=== PATIENT | female | born 1995 | race Caucasian/White ===

== ENCOUNTER 2024-09-17 14:46 | Emergency (ER) | payer SELFPAY ==
[~2024-09-17] VITALS: Ht 160 cm; Wt 59.0 kg
[2024-09-17 15:47] LABS: BASOPHILS % 0.7 % (0.0-2.0); HEMATOCRIT. 39.1 % (36.0-48.0); HEMOGLOBIN. 12.8 g/dL (12.0-16.0); LYMPHOCYTES % 18.6 % (20.0-50.0); MEAN CORPUSCULAR HEMOGLOBIN 31.5 pg (28.0-32.0); MEAN CORPUSCULAR HGB CONC 32.8 g/dL (31.0-37.0); MEAN CORPUSCULAR VOLUME 96.1 fL (81.0-99.0); MEAN PLATELET VOLUME 7.6 fl (7.4-10.4); MONOCYTES % 6.8 % (2.0-8.0); NEUTROPHILS % 73.9 % (40.0-76.0); PLATELET 328 x1000/uL (130-400); RED BLOOD CELL COUNT 4.07 mill/uL (4.2-5.4); RED CELL DISTRIBUTION WIDTH 12.9 % (11.6-14.6); WHITE BLOOD COUNT 14.4 x1000/uL (4.5-11.0)
[2024-09-17 15:54] LABS: CLARITY URINE CLOUDY (CLEAR); COLOR URINE YELLOW (YELLOW); GLUCOSE URINE NEGATIVE (NEGATIVE); KETONES URINE 3+ (NEGATIVE); LEUKOCYTE ESTERASE URINE NEGATIVE (NEGATIVE); NITRITE URINE NEGATIVE (NEGATIVE); OCCULT BLOOD URINE 2+ (NEGATIVE); PROTEIN URINE 1+ (NEGATIVE); SPECIFIC GRAVITY URINE 1.021 (1.005-1.030); UROBILINOGEN URINE 0.2 E.U./dL (0.2-1.0)
[2024-09-17 15:56] LABS: CHLORIDE 104 mEq/L (98-107); POTASSIUM 3.1 mEq/L (3.5-5.1); SODIUM 141 mEq/L (136-145)
[2024-09-17 15:57] LABS: CARBON DIOXIDE 25 mEq/L (21-32)
[2024-09-17 15:58] LABS: CALCIUM 9.7 mg/dL (8.7-10.4)
[2024-09-17 16:02] LABS: CREATININE 0.8 mg/dL (0.6-1.0); GLUCOSE 106 mg/dL (70-105); UREA NITROGEN BLOOD 14 mg/dL (9-23)
[2024-09-17 16:04] LABS: ACETAMINOPHEN < 2 ug/mL (10-30)
[2024-09-17 16:13] LABS: *AMPHETAMINES SCREEN URINE NEGATIVE (NEGATIVE); *BARBITURATES SCREEN URINE NEGATIVE (NEGATIVE); *BENZODIAZEPINES SCREEN URINE NEGATIVE (NEGATIVE); *COCAINE SCREEN URINE NEGATIVE (NEGATIVE); METHADONE URINE SCREEN NEGATIVE (NEGATIVE); OPIATES URINE SCREEN NEGATIVE (NEGATIVE)
[2024-09-17 16:14] LABS: CANNABINOID URINE SCREEN PRESUMPTIVE POSITIVE (NEGATIVE); ECSTASY MDMA SCREEN URINE NEGATIVE (NEGATIVE); PHENCYCLIDINE URINE SCREEN NEGATIVE (NEGATIVE)
[2024-09-17 16:38] LABS: ETHANOL BLOOD < 10 mg/dL (<10)
[2024-09-17 18:54] LABS: BACTERIA URINE 2+; SQUAMOUS EPITHELIAL CELL URINE 2+ /lpf (RARE/1+); WBC URINE 0-2 /hpf (0-2)
[2024-09-17] MEDS: QUETIAPINE FUMARATE 50MG TABLET PO SCH (21:19)
[2024-09-17] MEDS: OLANZAPINE 5MG TABLET ODT PO ONE (23:07)
[2024-09-17] MEDS: POTASSIUM CHLORIDE 20MEQ/PACKET PO ONE (23:07)
[2024-09-18] MEDS ORDERED: LORAZEPAM 1MG TABLET PO ONE (08:30)
[2024-09-18] MEDS: LORAZEPAM 1MG TABLET PO SCH (09:05)
[2024-09-18] MEDS: ACETAMINOPHEN 325MG TABLET PO ONE (18:33)
[2024-09-18 21:25] LABS: HCG SCREEN NEGATIVE
[2024-09-18] MEDS: LORAZEPAM 2MG/ML INJ IM ONE (21:53)
[2024-09-19] MEDS: ACETAMINOPHEN 500MG TABLET PO NR (06:40)
[2024-09-19] MEDS: LORAZEPAM 2MG/ML INJ IM ONE ×2 (11:42→22:45)
[2024-09-19] MEDS: HALOPERIDOL LACTATE 5MG/ML VIAL IM ONE ×2 (11:45→22:45)
[2024-09-19] MEDS: DIPHENHYDRAMINE 50MG/ML VIAL IM ONE (11:45)
[2024-09-19 23:45] VITALS: O2SAT 99
[2024-09-20] MEDS: LORAZEPAM 2MG/ML INJ IM NR (05:17)
[2024-09-20 06:00] VITALS: TEMP 36.9
[2024-09-20 08:00] VITALS: BP 128/82; PULSE 100; RESP 18; O2SAT 100
== END 2024-09-20 12:26 | disposition home or self-care (01) ==
LOC: ER 15:30
DX: R45.851 Suicidal ideations (principal); Z98.890 Other specified postprocedural states; Z20.822 Contact with and (suspected) exposure to COVID-19
CPT/HCPCS: 80305; 80048; 81003; 80307; 80329; 80320; 84703; 85025; 36415; 99291; 87426; Z7610; J1630 ×2; J2060 ×3; J1200; 99285; G0480